=== PATIENT | male | born 1940 | race African-American/Black ===

== ENCOUNTER 2024-05-15 00:45 | Emergency (ER) | payer OTHER ==
[~2024-05-15] VITALS: Ht 180.3 cm; Wt 96.7 kg
[2024-05-15 00:53] VITALS: O2SAT 98
[2024-05-15] MEDS ORDERED: ASPIRIN 81MG TABLET PO ONE (01:45)
[2024-05-15] MEDS: ASPIRIN 81MG TABLET PO NR (02:15)
[2024-05-15 02:27] LABS: CHLORIDE 103 mEq/L (98-107); POTASSIUM 3.9 mEq/L (3.5-5.1); SODIUM 138 mEq/L (136-145)
[2024-05-15 02:28] LABS: CARBON DIOXIDE 26 mEq/L (21-32)
[2024-05-15 02:33] LABS: CREATININE 1.4 mg/dL (0.6-1.3); GLUCOSE 105 mg/dL (70-105); UREA NITROGEN BLOOD 18 mg/dL (9-23)
[2024-05-15 02:34] LABS: BASOPHILS % 0.9 % (0.0-2.0); DIFFERENTIAL COMMENT 0; EOSINOPHILS % 0.2 % (0.0-5.0); HEMATOCRIT. 28.8 % (42.0-52.0); HEMOGLOBIN. 9.3 g/dL (14.0-18.0); LYMPHOCYTES % 11.2 % (20.0-50.0); MEAN CORPUSCULAR HEMOGLOBIN 25.7 pg (28.0-32.0); MEAN CORPUSCULAR HGB CONC 32.5 g/dL (31.0-37.0); MEAN CORPUSCULAR VOLUME 79.1 fL (80.0-94.0); MEAN PLATELET VOLUME 7.1 fl (7.4-10.4); MONOCYTES % 9.5 % (2.0-8.0); NEUTROPHILS % 78.2 % (40.0-76.0); PLATELET 398 x1000/uL (130-400); RED BLOOD CELL COUNT 3.64 mill/uL (4.7-6.1); RED CELL DISTRIBUTION WIDTH 16.8 % (11.6-14.6)
[2024-05-15 02:41] LABS: INR 2.3; PROTHROMBIN TIME 23.9 sec (9.6-11.0)
[2024-05-15 02:55] LABS: ETHANOL BLOOD < 10 mg/dL (<10); TROPONIN I HIGH SENSITIVITY 172 ng/L (3.0-53)
[2024-05-15] MEDS: IOHEXOL-350 100 ML BOTTLE ONE (03:04)
[2024-05-15 06:29] VITALS: BP 146/71; PULSE 96; RESP 19; TEMP 36.83628; O2SAT 97
== END 2024-05-15 06:38 | disposition short-term general hospital (02) ==
LOC: ER 00:45
DX: I63.9 Cerebral infarction, unspecified (principal); I21.4 Non-ST elevation (NSTEMI) myocardial infarction; I50.9 Heart failure, unspecified; N17.9 Acute kidney failure, unspecified; Z95.2 Presence of prosthetic heart valve
CPT/HCPCS: 80048; 80320; 83880; 83605; 85025; 85610; 86850; 86900; 86901; 87040; 84484; 36415; 84145; 71045; 70496; 70498; 70450; 93005; 99291; 99292; Q9967; G0480